=== PATIENT | female | born 1970 | race Caucasian/White ===

== ENCOUNTER 2022-08-13 10:25 | Day surgery (SDC) | payer BC, OTHER ==
[2022-08-11 11:47] VITALS: BMI 49.6
[~2022-08-13 10:25] MED LIST: LACTATED RINGERS 1,000 ML IV SCH
[2022-08-13 11:10] VITALS: TEMP 97.4
[2022-08-13] MEDS ORDERED: PROPOFOL 10 MG/ML 20 ML VIAL IV ONE (12:38)
--- NOTE | 2022-08-13 13:00 | P.PCN ---
Date of Procedure: 08/13/22 Procedure(s) Performed: BRIEF HISTORY: Patient is a 51-year-old pleasant female scheduled for an elective colonoscopy as a part of screening for colon cancer. PROCEDURE PERFORMED: Colonoscopy. With biopsy PREOPERATIVE DIAGNOSIS: Screening for colon cancer. IV sedation per Anesthesia. PROCEDURE: After informed consent was obtained, the patient, was brought into the endoscopy unit. IV sedation was administered by Anesthesia under continuous monitoring. Digital rectal examination was normal. Initially the Olympus CF-160 flexible video colonoscope was then inserted in the rectum, gradually advanced into the cecum without any difficulty. Careful examination was performed as the scope was gradually being withdrawn. Ileocecal valve and the appendiceal orifice were visualized and appeared normal. Prep was excellent. Mucosa of the cecum, ascending colon, transverse colon, appeared normal. In the descending colon there was a 5 mm polyp that was removed by cold biopsy. In the sigmoid colon there was a 3 mm polyp removed by cold biopsy. Rest of the descending colon, sigmoid colon, and rectum appeared normal. Retroflexion was performed in the rectum and no lesions were seen. The patient tolerated the procedure well. IMPRESSION: 5 mm descending colon polyp status post cold biopsy 3 mm sigmoid: Polyp status post cold biopsy RECOMMENDATIONS: Findings of this examination were discussed with the patient as well as a family. She was advised to follow with the biopsy results and if t he biopsy result adenoma she can have a repeat colonoscopy in 5 years.
[2022-08-13 13:38] VITALS: BP 101/71; PULSE 70; RESP 20
== END 2022-08-13 13:33 | disposition home or self-care (01) ==
LOC: ORWHC2ENDO 10:25
PROVIDERS: ATTEND Internal Medicine Gastroenterology
DX: Z12.11 Encounter for screening for malignant neoplasm of colon (principal); D12.5 Benign neoplasm of sigmoid colon; J45.909 Unspecified asthma, uncomplicated; E03.9 Hypothyroidism, unspecified; K21.9 Gastro-esophageal reflux disease without esophagitis; Z98.890 Other specified postprocedural states; Z79.899 Other long term (current) drug therapy
CPT/HCPCS: 81025; 84703; 45380; J2704; 88305